=== PATIENT | male | born 1995 | race Two or more races ===

== ENCOUNTER 2022-09-18 16:46 | Emergency (ER) | payer SELFPAY ==
[~2022-09-18] VITALS: Ht 170.2 cm; Wt 176.8 kg
[2022-09-18 19:46] VITALS: BP 141/79
== END 2022-09-18 21:16 | disposition left against medical advice (07) ==
LOC: M ED 16:46
DX: Z53.21 Procedure and treatment not carried out due to patient leaving prior to being seen by health care provider (principal)

== ENCOUNTER → 2023-08-05 | Outpatient (REF) | payer OTHER ==
[2023-08-05 18:31] LABS: CREATININE, URINE 148.8 MG/DL
[2023-08-05 18:32] LABS: MAU/CREAT RATIO 136.4 MCG/MG (0.0-30.0)
== END ==
LOC: M LAB REF 17:19
PROVIDERS: ATTEND Nurse Practitioner Family
DX: E11.65 Type 2 diabetes mellitus with hyperglycemia (principal)

== ENCOUNTER → 2023-10-27 | Outpatient (CLI) | payer OTHER ==
[2023-10-27 17:54] LABS: BLOOD UREA NITROGEN 9 MG/DL (9-23); CALCIUM LEVEL 9.1 MG/DL (8.5-10.1); CARBON DIOXIDE LEVEL 28 MMOL/L (20-31); CHLORIDE LEVEL 107 MMOL/L (98-107); CREATININE FOR GFR 0.82 MG/DL (0.70-1.30); GLOMERULAR FILTRATION RATE > 60.0 (>60); GLUCOSE, FASTING 100 MG/DL (60-100); SODIUM LEVEL 139 MMOL/L (136-145)
== END ==
LOC: M LAB 16:12
PROVIDERS: ATTEND Orthopaedic Surgery
DX: Z01.818 Encounter for other preprocedural examination (principal)